=== PATIENT | male | born 1980 | race Caucasian/White ===

== ENCOUNTER 2022-05-28 21:24 | Observation (INO) | payer BC ==
--- NOTE | 2022-05-28 21:45 | ED ---
Chest Pain HPI - General Chief Complaint: Chest Pain Stated Complaint: Chest Pain, Heart History Time Seen by Provider: 05/28/22 21:44 Source: patient, RN notes reviewed, old records reviewed Mode of arrival: wheelchair - History of Present Illness Initial Comments: This is a 42-year-old male to the emergency department for evaluation. Patient coming in for left-sided chest pain typical chest pain left-sided heaviness radiation to her shoulder. Patient has history of HI with stent. Former smoker, currently nonsmoking. Patient has no high blood pressure or cholesterol no diabetes or any other complaints. Patient has no known no nausea vomiting no fevers no travel history or sick contacts. MD Complaint: chest pain -: minutes(s) Onset: during rest Pain Location: substernal, left chest Pain Radiation: LUE Severity: moderate Severity scale (1-10): 4 Quality: tightness, heaviness Consistency: constant Improves With: nothing Worsens With: nothing Anginal Symptoms: sense of impending doom Other Symptoms: palpitations Treatments Prior to Arrival: aspirin, nitroglycerin - Related Data Home Medications Medication Instructions Recorded Confirmed Aspirin EC [Ecotrin Low Dose] 81 mg PO DAILY 05/28/22 05/28/22 Atorvastatin [Lipitor] 80 mg PO HS 05/28/22 05/28/22 Nitroglycerin Sl Tabs [Nitrostat] 0.4 mg SUBLINGUAL Q5M PRN 05/28/22 05/28/22 Ticagrelor [Brilinta] 60 mg PO BID 05/28/22 05/28/22 lisinopriL [Zestril] 5 mg PO HS 05/28/22 05/28/22 Allergies Allergy/AdvReac Type Severity Reaction Status Date / Time Penicillins Allergy Unknown Verified 05/28/22 22:59 Childhood Review of Systems ROS Statement: Those systems with pertinent positive or pertinent negative responses have been documented in the HPI. ROS Other: All systems not noted in ROS Statement are negative. EKG Findings - EKG Comments: EKG Findings:: EKG is sinus rhythm 82 DC 149 QRS 80 QTC 383 - EKG Results: EKG: interpreted by JONATAN (EKG #2 shows sinus rhythm 63 DC 152 QRS 90 QTC 379) Past Medical History Past Medical History: Hypertension, Myocardial Infarction ([place]) Additional Past Medical History / Comment(s): blood thinners History of Any Multi-Drug Resistant Organisms: None Reported Past Surgical History: Appendectomy, Heart Catheterization With Stent, Tonsillectomy Additional Past Surgical History / Comment(s): L knee Past Psychological History: Bipolar Smoking Status: Never smoker Past Alcohol Use History: None Reported Past Drug Use History: None Reported General Exam General appearance: alert, in no apparent distress, anxious Head exam: Present: atraumatic, normocephalic, normal inspection Eye exam: Present: normal appearance, PERRL, EOMI. Absent: scleral icterus, conjunctival injection, periorbital swelling ENT exam: Present: normal exam, mucous membranes moist Neck exam: Present: normal inspection. Absent: tenderness, meningismus, lymphadenopathy Respiratory exam: Present: normal lung sounds bilaterally. Absent: respiratory distress, wheezes, rales, rhonchi, stridor Cardiovascular Exam: Present: normal rhythm, tachycardia, normal heart sounds. Absent: systolic murmur, diastolic murmur, rubs, gallop, clicks GI/Abdominal exam: Present: soft, normal bowel sounds. Absent: distended, tenderness, guarding, rebound, rigid Extremities exam: Present: normal inspection, full ROM, normal capillary refill. Absent: tenderness, pedal edema, joint swelling, calf tenderness Back exam: Present: normal inspection Neurological exam: Present: alert, oriented X3, CN II-XII intact Psychiatric exam: Present: normal affect, normal mood Skin exam: Present: warm, dry, intact, normal color. Absent: rash Course Vital Signs 05/28/22 21:25 Temperature 97.9 F Pulse Rate 104 H Respiratory 18 Rate Blood Pressure 110/59 O2 Sat by Pulse 96 Oximetry - Reevaluation(s) Reevaluation #1: 05/28/22 22:14 Medical record is reviewed Reevaluation #2: 05/29/22 00:30 Patient still with chest pain here in the ER Reevaluation #3: 05/29/22 00:30 Patient informed results and questions answered - Consultations Consultation #1: Spoke with sound who will admit this patient Chest Pain MDM - MDM Female DF for evaluation chest pain patient presents with persistent chest pain here in the ER. History of prior HI and stent. Patient be admitted for cardiac observation rule out ACS Critical Care Time Critical Care Time: Yes Total Critical Care Time: 31 Disposition Clinical Impression: Atypical chest pain, Chest pain Disposition: ADMITTED IP TO THIS HOSP Condition: Undetermined Is patient prescribed a controlled substance at d/c from ED?: No Referrals: Charan Holbrook MD [Primary Care Provider] - 1-2 days Time of Disposition: 00:15
[2022-05-28 22:50] LABS: Basophils # (A) 0.1 k/uL (0-0.2); Basophils % (A) 1 %; Eosinophils # (A) 0.2 k/uL (0-0.7); Eosinophils % (A) 2 %; HCT 43.2 % (39.0-53.0); HGB 15.1 gm/dL (13.0-17.5); Lymphocytes % (A) 30 %; MCH 32.7 pg (25.0-35.0); MCV 93.5 fL (80.0-100.0); Mean Platelet Volume 7.6; Monocytes # (A) 0.5 k/uL (0-1.0); Monocytes % (A) 5 %; Neutrophils # (A) 5.9 k/uL (1.3-7.7); Neutrophils % (A) 61 %; Platelet Count 277 k/uL (150-450); RBC 4.62 m/uL (4.30-5.90); WBC 9.8 k/uL (3.8-10.6)
[2022-05-28 22:58] LABS: Partial Thromboplastin Time 25.2 sec (22.0-30.0); Prothrombin Time 11.2 sec (9.0-12.0)
[2022-05-28 22:59] LABS: ALT 37 U/L (4-49); AST 40 U/L (17-59); African American GFR (CKD) >90 (>60 ml/min/1.73 sqM); Albumin 4.1 g/dL (3.5-5.0); Alkaline Phosphatase 76 U/L (38-126); Anion Gap 7 mmol/L; Blood Urea Nitrogen 11 mg/dL (9-20); Calcium 9.2 mg/dL (8.4-10.2); Carbon Dioxide 28 mmol/L (22-30); Chloride 102 mmol/L (98-107); Glucose 171 mg/dL (74-99); Lipase 139 U/L (23-300); Non-African American GFR(CKD) >90 (>60 ml/min/1.73 sqM); Potassium 3.4 mmol/L (3.5-5.1); Sodium 137 mmol/L (137-145); Total Bilirubin 0.5 mg/dL (0.2-1.3); Total Protein 6.3 g/dL (6.3-8.2)
--- NOTE | 2022-05-28 23:44 | XR ---
EXAMINATION TYPE: XR chest 1V portable DATE OF EXAM: 05/28/2022 COMPARISON: NONE HISTORY: Pain TECHNIQUE: Single view FINDINGS: Heart and mediastinum are normal. Lungs are clear. Diaphragm is normal. Bony thorax appears normal. IMPRESSION: Normal chest
[2022-05-29] MEDS ORDERED: MORPHINE SULFATE 4 MG/ML SYRINGE IV PRN (00:28)
[2022-05-29] MEDS ORDERED: NITROGLYCERIN SL TABS 0.4 MG TAB SUBLINGUAL PRN (00:28)
[2022-05-29] MEDS ORDERED: HEPARIN SODIUM 1,000 UN/ML (10ML VL) IV ONE (00:28)
[2022-05-29] MEDS ORDERED: POTASSIUM BICARBONATE/CIT AC 20 MEQ TABLET.EFF PO ONE (00:28)
[2022-05-29] MEDS ORDERED: ASPIRIN 81 MG PO STA (00:28)
[2022-05-29] MEDS ORDERED: HEPARIN SOD,PORK IN 0.45% NACL 25,000 UNIT in 0.45% NACL 1 250ML.BAG IV SCH (00:30)
[2022-05-29] MEDS: MORPHINE SULFATE 2 MG/ML SYRINGE IVP PRN ×2 (01:39→08:40)
--- NOTE | 2022-05-29 03:13 | P.HPIM ---
History of Present Illness H&P Date: 05/29/22 Chief Complaint: chest pain 42-year-old male with current artery disease Patient comes in after experiencing sudden onset chest pain described it as left-sided chest pain radiating to the arms associated with sweating denies any nausea vomiting or palpitation he reports some heavy breathing he took some medications at home no relief he was having dinner when this started and decided come to the hospital his girlfriend drove him to the ER and pain improved upon arrival taking nitro. Patient recalls having a left heart cath in stress test done about 6-8 months ago no intervention was done at that time Patient denies tobacco smoking or heavy alcohol or any illicit drugs he denies any exertional dyspnea EKG showed normal sinus rhythm Review of Systems Pertinent positives as noted in HPI. All other systems were reviewed and are negative Past Medical History Past Medical History: Hypertension, Myocardial Infarction ([place]) Additional Past Medical History / Comment(s): blood thinners History of Any Multi-Drug Resistant Organisms: None Reported Past Surgical History: Appendectomy, Heart Catheterization With Stent, Tonsillectomy Additional Past Surgical History / Comment(s): L knee Past Psychological History: Bipolar Smoking Status: Never smoker Past Alcohol Use History: None Reported Past Drug Use History: None Reported - Past Family History family Family Medical History: No Reported History Medications and Allergies Home Medications Medication Instructions Recorded Confirmed Type Aspirin EC [Ecotrin Low Dose] 81 mg PO DAILY 05/28/22 05/28/22 History Atorvastatin [Lipitor] 80 mg PO HS 05/28/22 05/28/22 History Nitroglycerin Sl Tabs [Nitrostat] 0.4 mg SUBLINGUAL Q5M PRN 05/28/22 05/28/22 History Ticagrelor [Brilinta] 60 mg PO BID 05/28/22 05/28/22 History lisinopriL [Zestril] 5 mg PO HS 05/28/22 05/28/22 History Allergies Allergy/AdvReac Type Severity Reaction Status Date / Time Penicillins Allergy Unknown Verified 05/28/22 22:59 Childhood Physical Exam Vitals: Vital Signs Temp Pulse Resp BP Pulse Ox 05/29/22 01:30 56 L 16 102/78 100 05/28/22 21:25 97.9 F 104 H 18 110/59 96 Intake and Output 05/28/22 05/28/22 05/29/22 14:59 22:59 06:59 Other: Weight 70.307 kg Constitutional: No acute distress, conversant, pleasant Eyes: Anicteric sclerae, moist conjunctiva, Pupils equal round reactive to light ENMT: NC/AT Oropharynx clear, no erythema, or exudates Neck: Supple, FROM, no masses, or JVD No carotid bruits No thyromegaly Lungs: Clear to auscultation Clear to percussion Normal respiratory effort, no accessory muscle use Cardiovascular: Heart regular in rate and rhythm, No murmurs, gallops, or rubs No peripheral edema Abdominal: Soft Nontender, no guarding, rebound or rigidity Abdomen moving with respiration Normoactive bowel sounds No hepatomegaly, No splenomegaly No palpable mass No abdominal wall hernia noted Skin: Normal temperature, tone, texture, turgor No induration No subcutaneous nodules No rash, lesions No ulcers Extremities: No digital cyanosis No clubbing Pedal pulses intact and symmetrical Radial pulses intact and symmetrical No calf tenderness Psychiatric: Alert and oriented to person, place and time Appropriate affect fair judgement Neuro Muscles Strength 5/5 in all 4 extremities Sensation to light touch grossly present throughout Cranial nerves II-XII grossly intact No focal sensory deficits Lymphatics: no palpable cervical or supraclavicular , or inguinal lymph nodes Results CBC & Chem 7: 05/28/22 22:12 05/28/22 22:12 Labs: Abnormal Lab Results - Last 24 Hours (Table) 05/28/22 Range/Units 22:12 Potassium 3.4 L (3.5-5.1) mmol/L Glucose 171 H (74-99) mg/dL Assessment and Plan Assessment: atypical chest pain rule out ACS EKG no acute changes CXR no acute pathology trops negative X2 cardiac monitor technician monitor vital signs ASA, statin cardiology consult A1c, lipid panel , TSH pain control Heparin drip was started in the ED History of coronary artery disease Full code
[2022-05-29 04:27] LABS: Mean Platelet Volume 7.6; Platelet Count 277 k/uL (150-450)
[2022-05-29 07:58] VITALS: BP 99/55; PULSE 50; RESP 18; TEMP 97.4
[2022-05-29] MEDS ORDERED: DOBUTamine DRIP for NUC MED 500 MG in DEXTROSE/WATER 1 250ML.BAG IV PRN (08:09)
[2022-05-29] MEDS ORDERED: ASPIRIN 81 MG PO SCH (08:15)
[2022-05-29] MEDS ORDERED: NON FORMULARY DRUG (Ticagrelor [Brilinta] 60 MG Tablet) PO SCH (09:00)
--- NOTE | 2022-05-29 09:35 | P.CRDCN ---
History of Present Illness Consult date: 05/29/22 History of present illness: HISTORY OF PRESENT ILLNESS: This is a 42-year-old male with a past medical history significant for coronary artery disease with previous stenting (details unknown), hypertension, hyperlipidemia, and former nicotine dependence. Patient used to follow with Dr. Michael but has not seen her recently. We have been asked to see the patient in consultation for chest pain. Patient examined at the bedside. Patient states yesterday he was sitting down to dinner when he suddenly began to have chest pain. He states the pain was in the middle of his chest and felt like an intense pressure. He states the pain radiated into his left arm. He reported having an upset stomach but denied any vomiting. He states this pain was different than his OR that he had 3 years ago. He states at that time his chest felt like pins and needles and he was diaphoretic. * EKG reveals sinus mechanism with no signs of acute ischemia * Chest xray negative for acute process * Laboratory data: WBC 9.8. Hemoglobin 15.1. Platelet count 277. Sodium 137. Potassium 3.4. BUN 11. Creatinine 0.94. Magnesium 2.0. Troponin negative 3 * Current home cardiac medications include aspirin 81 mg daily, Lipitor 80 mg daily, lisinopril 5 mg daily, and Brilinta 60mg BID REVIEW OF SYSTEMS: At the time of my exam: CONSTITUTIONAL: Denies fever or chills. HEENT: Denies blurred vision, vision changes, or eye pain. Denies hemoptysis CARDIOVASCULAR: Denies chest pain. Denies orthopnea. Denies PND. Denies palpitations RESPIRATORY: Denies shortness of breath. GASTROINTESTINAL: Denies abdominal pain. Denies nausea or vomiting. HEMATOLOGIC: Denies bleeding disorders. GENITOURINARY: Denies any blood in urine. SKIN: Denies pruitis. Denies rash. PHYSICAL EXAM: VITAL SIGNS: Reviewed. GENERAL: Well-developed in no acute distress. HEENT: Head is normocephalic. Pupils are equal, round. Sclerae anicteric. Mucous membranes of the mouth are moist. Neck supple. No JVD or thyromegaly LUNGS: Respirations even and unlabored. Lungs essentially clear to auscultation bilaterally. HEART: Regular rate and rhythm. S1 and S2 heard. ABDOMEN: Soft. Nondistended. Nontender. EXTREMITIES: Normal range of motion. No clubbing or cyanosis. Peripheral pulses intact. No lower extremity edema NEUROLOGIC: Awake and alert. Oriented x 3. ASSESSMENT: Chest pain Coronary artery disease with previous PCI Hypertension Hyperlipidemia Former nicotine dependence PLAN: An acute coronary event has been ruled out Recommending discontinuation of Brilinta as PCI was 3 years ago per patient. However, will defer to patients primary third hand Patient to undergo dobutamine stress test today to assess for reversible ischemia. Further recommendations pending patient course Nurse practitioner note has been reviewed by physician. Signing provider agrees with the documented findings, assessment, and plan of care. Past Medical History Past Medical History: Hypertension, Myocardial Infarction ([place]) Additional Past Medical History / Comment(s): blood thinners Last Myocardial Infarction Date:: December 29 2018 History of Any Multi-Drug Resistant Organisms: None Reported Past Surgical History: Appendectomy, Heart Catheterization With Stent, Tonsillectomy Additional Past Surgical History / Comment(s): L knee Date of Last Stent Placement:: December 29 2018 Past Psychological History: Bipolar Smoking Status: Former smoker Past Alcohol Use History: None Reported Past Drug Use History: None Reported - Past Family History family Family Medical History: No Reported History Medications and Allergies Home Medications Medication Instructions Recorded Confirmed Type Aspirin EC [Ecotrin Low Dose] 81 mg PO DAILY 05/28/22 05/28/22 History Atorvastatin [Lipitor] 80 mg PO HS 05/28/22 05/28/22 History Nitroglycerin Sl Tabs [Nitrostat] 0.4 mg SUBLINGUAL Q5M PRN 05/28/22 05/28/22 History Ticagrelor [Brilinta] 60 mg PO BID 05/28/22 05/28/22 History lisinopriL [Zestril] 5 mg PO HS 05/28/22 05/28/22 History Allergies Allergy/AdvReac Type Severity Reaction Status Date / Time Penicillins Allergy Unknown Verified 05/28/22 22:59 Childhood Physical Exam Vitals: Vital Signs Temp Pulse Pulse Resp BP BP Pulse Ox 05/29/22 07:00 97.4 F L 50 L 18 99/55 98 05/29/22 04:40 97.7 F 58 L 16 102/63 97 05/29/22 03:26 64 16 103/61 05/29/22 01:30 56 L 16 102/78 100 05/28/22 21:25 97.9 F 104 H 18 110/59 96 Intake and Output 05/28/22 05/29/22 05/29/22 22:59 06:59 14:59 Other: # Voids 1 Weight 70.307 kg 70.307 kg Results 05/29/22 04:05 05/28/22 22:12 Cardiac Enzymes 05/28/22 05/28/22 05/29/22 Range/Units 22:12 22:12 00:45 AST 40 (17-59) U/L Troponin I <0.012 <0.012 (0.000-0.034) ng/mL 05/29/22 Range/Units 04:05 AST (17-59) U/L Troponin I <0.012 (0.000-0.034) ng/mL Coagulation 05/28/22 05/29/22 Range/Units 22:12 07:22 PT 11.2 (9.0-12.0) sec APTT 25.2 65.5 H (22.0-30.0) sec CBC 05/28/22 05/29/22 Range/Units 22:12 04:05 WBC 9.8 (3.8-10.6) k/uL RBC 4.62 (4.30-5.90) m/uL Hgb 15.1 (13.0-17.5) gm/dL Hct 43.2 (39.0-53.0) % Plt Count 277 277 (150-450) k/uL Comprehensive Metabolic Panel 05/28/22 Range/Units 22:12 Sodium 137 (137-145) mmol/L Potassium 3.4 L (3.5-5.1) mmol/L Chloride 102 (98-107) mmol/L Carbon Dioxide 28 (22-30) mmol/L BUN 11 (9-20) mg/dL Creatinine 0.94 (0.66-1.25) mg/dL Glucose 171 H (74-99) mg/dL Calcium 9.2 (8.4-10.2) mg/dL AST 40 (17-59) U/L ALT 37 (4-49) U/L Alkaline Phosphatase 76 (38-126) U/L Total Protein 6.3 (6.3-8.2) g/dL Albumin 4.1 (3.5-5.0) g/dL Current Medications Generic Name Dose Route Start Last Admin Trade Name Freq PRN Reason Stop Dose Admin Aspirin 325 mg 05/30/22 09:00 Aspirin 325 Mg Tab PO DAILY [facility] Atorvastatin Calcium 80 mg 05/29/22 21:00 Atorvastatin 80 Mg Tab PO HS [facility] Heparin Sodium/Sodium Chloride 250 mls @ 8.437 mls/hr 05/29/22 00:30 05/29/22 01:25 25,000 unit/ Sodium Chloride IV 12 units/kg/hr .Q24H ODELL 8.437 mls/hr Administration Protocol 12 UNITS/KG/HR Lisinopril 5 mg 05/29/22 21:00 Lisinopril 5 Mg Tab PO HS [facility] Morphine Sulfate 4 mg 05/29/22 00:28 Morphine Sulfate 4 Mg/Ml Syringe IV ONCE PRN Chest Pain Morphine Sulfate 2 mg 05/29/22 00:28 05/29/22 01:39 Morphine Sulfate 2 Mg/Ml Syringe IVP 2 mg Q4HR PRN Administration Chest Pain Nitroglycerin 0.4 mg 05/29/22 00:28 Nitroglycerin Sl Tabs 0.4 Mg Tab SUBLINGUAL Q5M PRN Chest Pain Non-Formulary Medication 60 mg 05/29/22 09:00 Ticagrelor [Brilinta] PO BID [facility] Intake and Output 05/28/22 05/29/22 05/29/22 22:59 06:59 14:59 Other: # Voids 1 Weight 70.307 kg 70.307 kg 05/29/22 04:05 05/28/22 22:12
[2022-05-29] MEDS ORDERED: DOBUTamine DRIP for NUC MED 500 MG/250 ML BAG IV ONE (10:20)
--- NOTE | 2022-05-29 11:15 | CA ---
Transthoracic Echo Report Name: Lucas Alvarado Age: 42 Gender: M : 1980 Exam Date: 05/29/2022 10:02 Exam Location: [facility] Ht (in): 63 Wt (lb): 155 Ordering Physician: Dania Lassiter Attending/Referring Phys: [id number], [employer] Department Chair Aundrea Meadows RDCS Procedure CPT: Indications: LV function, CP Cardiac Hx: Technical Quality: Good Contrast 1: Total Dose (mL): Contrast 2: Total Dose (mL): MEASUREMENTS (Male / Female) Normal Values 2D ECHO LV Diastolic Diameter PLAX 5.0 cm 4.2 - 5.9 / 3.9 - 5.3 cm LV Systolic Diameter PLAX 3.2 cm IVS Diastolic Thickness 1.0 cm 0.6 - 1.0 / 0.6 - 0.9 cm LVPW Diastolic Thickness 0.9 cm 0.6 - 1.0 / 0.6 - 0.9 cm LV Relative Wall Thickness 0.4 LA Volume 36.3 cm??? 18 - 58 / 22 - 52 cm??? M-MODE Aortic Root Diameter MM 2.4 cm LA Systolic Diameter MM 2.2 cm LA Ao Ratio MM 0.9 MV E Point Septal Separation 0.4 cm AV Cusp Separation MM 1.2 cm DOPPLER AV Peak Velocity 108.7 cm/s AV Peak Gradient 4.7 mmHg MV Area PHT 3.3 cm??? MR Peak Velocity 125.3 cm/s MR Peak Gradient 6.3 mmHg Mitral E Point Velocity 56.7 cm/s Mitral A Point Velocity 33.5 cm/s Mitral E to A Ratio 1.7 MV Deceleration Time 228.9 ms MV E' Velocity 10.4 cm/s Mitral E to MV E' Ratio 5.4 TR Peak Velocity 154.9 cm/s TR Peak Gradient 9.6 mmHg Right Ventricular Systolic Press 14.6 mmHg FINDINGS Left Ventricle Normal Left ventricular size, wall thickness, systolic function with no obvious regional wall motion abnormalities. Normal Left ventricular diastolic filling pattern. Left ventricular ejection fraction is estimated at 50-55 %. Right Ventricle The right ventricle is normal in size and function. Right Atrium The right atrium is normal in size. Left Atrium The left atrium is normal in size. Mitral Valve Structurally normal mitral valve without significant stenosis or prolapse. There is trace mitral regurgitation. Aortic Valve Structurally normal aortic valve without significant sclerosis or stenosis. There is no aortic regurgitation. Tricuspid Valve Structurally normal tricuspid valve without significant stenosis. Pulmonary artery systolic pressure is normal. Trace tricuspid regurgitation. Pulmonic Valve Structurally normal pulmonic valve without significant stenosis. There is no pulmonic regurgitation. Pericardium Normal pericardium without effusion. Aorta Normal aortic root dimension. CONCLUSIONS Normal LV size with an ejection fraction of about 45-50% with mild septal hypokinesis Previewed by: Dr. Kennedy Soto MD (Electronically Signed) Final Date: 29 May 2022 11:14
--- NOTE | 2022-05-29 11:19 | CA ---
Dobutamine Stress Echocardiogram Report Lucas Alvarado Age: 42 Gender: M : 1980 Exam Date: 05/29/2022 10:14 Exam Location: [facility] Ordering Physician: Dania Lassiter Referring Physician: Maikol MELÉNDEZ Junior Analyst: ASTRID Technologist: Ht (in): 63 Wt (lb): 155 Procedure CPT: Indication: CP ICD-9 Codes: Rhythm: Patient History: Cardiac Medications: Medications in past 24 hours: Contrast: Total Dose (mL): Stress Results Protocol: Dobutamine Peak Dose (???g/kg/min): 40 Duration (min:sec): Atropine:(mg) Target HR: 150 Double Product: Resting HR: 53 Resting BP: 89 / 54 Peak HR: 149 Peak BP: 139 / 61 Max Predicted HR: 177 84 % Max Predicted HR Stress Summary: BP Response: Reason for Termination: Exceeded target heart rate (85% max predicted) Cardiac Symptoms: Test terminated after reaching target heart rate (85% max predicted) ECG Analysis Resting EKG: Stress EKG: Arrhythmia: Echo Analysis Base Echo Analysis: Low Echo Anaylsis: Peak Echo Analysis: Recovery Echo: MEASUREMENTS (Male/Female) Normal Values CONCLUSIONS Dobutamine stress echo Normal heart rate and blood pressure baseline Baseline 2-D echo images showed mildly reduced LV systolic function with very mild septal hypokinesis Patient received dobutamine infusion per protocol No symptoms No ECG abnormalities Occasional LV PVCs Augmentation of overall LV contractility in a stepwise manner with dobutamine infusion At recovery LV systolic function was normal Impression mildly reduced LV systolic function and baseline No new wall motion abnormalities with dobutamine infusion, augmentation of overall LV contractility without development of any wall motion abnormalities Occasional PVCs No ECG evidence of ischemia Dr. Kennedy Soto MD (Electronically Signed) Final Date: 29 May 2022 11:18
--- NOTE | 2022-05-29 13:23 | P.DS ---
Providers Date of admission: 05/29/22 00:28 Expected date of discharge: 05/29/22 Attending physician: Rodney Harley MD Consults: 05/29/22 00:28 Consult Physician Urgent Consulting Provider: Irena Ac Consult Reason/Comments: cp Do you want consulting provider notified?: Yes Primary care physician: Charan Holbrook Hospital Course: Discharge Diagnosis: [] Hospital Course: This is a 42-year-old male with a past medical history significant for coronary artery disease with previous stenting (details unknown), hypertension, hyperlipidemia, and former nicotine dependence. Patient used to follow with Dr. Michael but has not seen her recently. We have been asked to see the patient in consultation for chest pain. Patient examined at the bedside. Patient states yesterday he was sitting down to dinner when he suddenly began to have chest pain. He states the pain was in the middle of his chest and felt like an intense pressure. He states the pain radiated into his left arm. He reported having an upset stomach but denied any vomiting. He states this pain was different than his [place] that he had 3 years ago. He states at that time his chest felt like pins and needles and he was diaphoretic. Patient was admitted for further evaluation. Patient stress test showed no reversible ischemia. His troponins are negative 3. Patient was cleared by cardiology for discharge. Cardiology did recommend to hold Brilinta since it has been more than 3 years since patient had cardiac stents placed however will defer to his primary ranger aide. Patient denied any chest pain at the time of discharge and appeared comfortable while lying in bed. Patient seen and examined at bedside.[] Vital signs reviewed and stable. General: [non toxic], [no distress], [appears at stated age] Derm: [warm], [dry] Head: [atraumatic], [normocephalic], [symmetric] Eyes: [EOMI], [no lid lag], [anicteric sclera] Mouth: [no lip lesion], [mucus membranes moist] Cardiovascular: [S1S2 reg], [no murmur], [positive posterior tibial pulse bilateral], Lungs: [CTA bilateral], [no rhonchi, no rales] , [no accessory muscle use] Abdominal: [soft], [ nontender to palpation], [no guarding], [no appreciable organomegaly] Ext: [no gross muscle atrophy], [no edema], [no contractures] Neuro: [ CN II-XI grossly intact], [no focal neuro deficits] Psych: [Alert], [oriented], [appropriate affect] A total of [33] minutes of time were spent preparing this complex discharge summary . Patient Condition at Discharge: Good Plan - Discharge Summary New Discharge Prescriptions: Continue Ticagrelor [Brilinta] 60 mg PO BID Nitroglycerin Sl Tabs [Nitrostat] 0.4 mg SUBLINGUAL Q5M PRN PRN Reason: Chest Pain Atorvastatin [Lipitor] 80 mg PO HS lisinopriL [Zestril] 5 mg PO HS Aspirin EC [Ecotrin Low Dose] 81 mg PO DAILY Discharge Medication List Aspirin EC [Ecotrin Low Dose] 81 mg PO DAILY 05/28/22 [History] Atorvastatin [Lipitor] 80 mg PO HS 05/28/22 [History] Nitroglycerin Sl Tabs [Nitrostat] 0.4 mg SUBLINGUAL Q5M PRN 05/28/22 [History] Ticagrelor [Brilinta] 60 mg PO BID 05/28/22 [History] lisinopriL [Zestril] 5 mg PO HS 05/28/22 [History] Follow up Appointment(s)/Referral(s): Charan Holbrook MD [Primary Care Provider] - 1-2 days Jeannie Michael DO [REFERRING] - 1 Week Discharge Disposition: HOME SELF-CARE
[2022-05-29] MEDS ORDERED: ATORVASTATIN 80 MG TAB PO SCH (21:00)
[2022-05-29] MEDS ORDERED: lisinopriL 5 MG TAB PO SCH (21:00)
[2022-05-30] MEDS ORDERED: ASPIRIN 325 MG TAB PO SCH (09:00)
== END 2022-05-29 14:31 | disposition home or self-care (01) ==
LOC: EC 21:24 → 6NMEDSUR 05-29 00:28
PROVIDERS: ADMIT Internal Medicine; ATTEND Internal Medicine
DX: R07.89 Other chest pain (principal); I25.10 Atherosclerotic heart disease of native coronary artery without angina pectoris; I10 Essential (primary) hypertension; E78.5 Hyperlipidemia, unspecified; R61 Generalized hyperhidrosis; R20.2 Paresthesia of skin; I25.2 Old myocardial infarction; F31.9 Bipolar disorder, unspecified; Z79.82 Long term (current) use of aspirin; Z79.02 Long term (current) use of antithrombotics/antiplatelets; Z79.899 Other long term (current) drug therapy; Z88.0 Allergy status to penicillin; Z95.5 Presence of coronary angioplasty implant and graft; Z87.891 Personal history of nicotine dependence; Z90.49 Acquired absence of other specified parts of digestive tract; Z98.890 Other specified postprocedural states
CPT/HCPCS: 96376; 96374; 96375; 99291; 36415; 93005; 93306; 93351; 83880; 80053; 83690; 83735; 84484 ×2; 85025; 85049; 85610; 85730 ×2; 71045; G0378; J1250; J2270; J1644 ×2